=== PATIENT | female | born 1965 | race Caucasian/White ===

== ENCOUNTER 2021-08-17 16:51 | Inpatient (IN) | payer MEDICAID ==
[~2021-08-17] VITALS: Ht 165.1 cm; Wt 66.2 kg
--- NOTE | 2021-08-17 16:55 | NUR ---
PATIENT BIBA BY CARE [facility]B TO BED 6.
[2021-08-17 16:58] VITALS: BP 121/61
--- NOTE | 2021-08-17 16:58 | NUR ---
Dr. Collier is evaluating patient at bedside
--- NOTE | 2021-08-17 17:00 | NUR ---
56 y/o F BIBA c/o ALOC. Per EMS, patient was at work and patient's boss contacted 911 after finding her outside of work with a half empty bottle of [place] alcohol. Patient presents able to follow verbal commands, repetitive responses and states "I'm sorry, I don't know" upon assessment questions. Unable to perform complete assessment due to patient's presentation. AccuChek 88. Lung sounds CTA; no abdominal tenderness upon palpation. Patient without facial droop, arm drift, and has equal floor tiling professional/pushes/pulls to lower extremities. SpO2 88% on room air, ERMD made aware and placed onto 3L by NC. RR 17 even/unlabored in no acute respiratory distress. Bed locked in lowest position, side rails x 2 for patient safety. Patient within view of nurses station. PMH/Sx/Meds/Allergies: unable to obtain
--- NOTE | 2021-08-17 17:05 | NUR ---
Patient desaturated to 88% on room air; Dr. Collier made aware and 3L by [place] provided; SpO2 95%.
--- NOTE | 2021-08-17 17:06 | NUR ---
DR. BLANC AT BEDSIDE EVALUATING PATIENT.
[2021-08-17] MEDS ORDERED: NACL 0.9% 1,000 ML IV ONE ×2 (17:15→23:25)
--- NOTE | 2021-08-17 17:25 | NUR ---
OBTAINED CT CONSENT, PLACED IN PT CHART.
--- NOTE | 2021-08-17 17:38 | NUR ---
Blood sample and cultures handed to CPT Lily at ER bedside
--- NOTE | 2021-08-17 17:49 | NUR ---
locate technician stopped by states will come back for transport pending lab results
--- NOTE | 2021-08-17 18:00 | NUR ---
Patient ambulated to restroom with steady/even gait
[2021-08-17 18:26] LABS: BASOPHILS % (AUTO) 0.3 % (0.0-2.0); EOSINOPHILS # (AUTO) 0.1 K/uL (0-0.4); EOSINOPHILS % (AUTO) 0.9 % (0.0-4.0); HEMATOCRIT 41.7 % (36-48); HEMOGLOBIN 13.7 g/dL (12.0-16.0); LYMPHOCYTES % (AUTO) 38.6 % (20.5-51.1); MEAN CORPUSCULAR HEMOGLOBIN 34 pg (27-31); MEAN CORPUSCULAR HGB CONC 33 g/dL (33-37); MEAN CORPUSCULAR VOLUME 102.1 fL (80-94); MONOCYTES # (AUTO) 0.6 K/uL (0.8-1.0); MONOCYTES % (AUTO) 4.8 % (1.7-9.3); NEUTROPHILS # (AUTO) 7.2 K/uL (1.8-7.7); NEUTROPHILS % (AUTO) 55.4 % (42.2-75.2); PLATELET COUNT (AUTO) 367 K/uL (140-450); RED BLOOD CELL COUNT(AUTO) 4.08 MIL/uL (4.20-5.40); RED CELL DISTRIBUTION WIDTH 13.6 % (11.6-13.7)
[2021-08-17 18:45] LABS: ALBUMIN 3.4 g/dL (3.4-5.0); ANION GAP 17.4 (8-16); ASPARTATE AMINOTRANSFERASE 91 U/L (15-37); CARBON DIOXIDE 21.7 mmol/L (21-32); CHLORIDE 111 mmol/L (98-107); CREATININE 0.7 mg/dL (0.6-1.3); GFR ARICAN-AMERICAN 111 mL/min (>90); GLUCOSE 90 mg/dL (74-106); POTASSIUM 3.1 mmol/L (3.5-5.1); SALICYLATE 4.4 mg/dL (2.8-20.0); SODIUM SERUM 147 mmol/L (136-145); TOTAL BILIRUBIN 0.1 mg/dL (0.0-1.0); UREA NITROGEN, BLOOD 6 mg/dL (7-18)
--- NOTE | 2021-08-17 18:49 | NUR ---
LAB CONTACTED REGARDING PENDING CHEMISTRY SINCE 1704. CPT JR STATES SHE WILL CHECK AND RECONTACT
--- NOTE | 2021-08-17 18:55 | NUR ---
CPT JR called states Chemistry came back. CT notified pt is ready
[2021-08-17 18:58] LABS: ACETAMINOPHEN < 0.5 ug/ml (10-30)
--- NOTE | 2021-08-17 19:22 | NUR ---
Report and transfer of care endorsed to RENEE Gifford.
--- NOTE | 2021-08-17 19:35 | NUR ---
pt was trying to leave hospital. when asked who she was and where she answered incorrectly- stated [facility]. pt became combative. security called. pt placed back in bed.
[2021-08-17] MEDS ORDERED: ZIPRASIDONE MESYLATE 20 MG/ML VIAL IM ONE ×2 (19:37→19:40)
[2021-08-17] MEDS ORDERED: cefTRIAXone 2,000 MG in DEXTROSE 5% 100 ML IV ONE (19:50)
[2021-08-17] MEDS ORDERED: cefTRIAXone 2,000 MG VIAL ONE (20:44)
--- NOTE | 2021-08-17 20:57 | NUR ---
pt is resting. equal rise and fall of chest wall. opens eyes to touch. all needs met. side rails x2, bed locked in lowest position.
[2021-08-17] MEDS ORDERED: MIDAZOLAM 2 MG/2 ML VIAL ONE ×2 (21:30)
[2021-08-17] MEDS ORDERED: MIDAZOLAM 2 MG/2 ML VIAL IVP ONE (21:30)
--- NOTE | 2021-08-17 21:50 | NUR ---
csf taken to lab.
--- NOTE | 2021-08-17 22:16 | NUR ---
pt is resting. equal rise and fall of chest wall. opens eyes to touch. all needs met. side rails x2, bed locked in lowest position.
[2021-08-17] MEDS ORDERED: NACL 0.9% 1,000 ML IV SCH ×2 (23:25→23:35)
[2021-08-17] MEDS ORDERED: DEXT 5% / NACL 0.9% 500 ML IV ONE (23:25)
[2021-08-17] MEDS ORDERED: guaiFENesin DM 200/20 MG-10 ML 10 ML UDC PO PRN (23:35)
[2021-08-17] MEDS ORDERED: HYDROcodone/APAP 7.5/325 MG 1 TAB PO PRN (23:35)
[2021-08-17] MEDS ORDERED: POTASSIUM CHLORIDE 10 MEQ TABER PO PRN (23:35)
[2021-08-17] MEDS ORDERED: ONDANSETRON 4 MG/2 ML VIAL IM/IVP PRN (23:35)
[2021-08-17] MEDS ORDERED: ZOLPIDEM 5 MG TAB PO PRN (23:35)
[2021-08-17] MEDS ORDERED: DOCUSATE SODIUM 100 MG GELCAP PO PRN (23:35)
[2021-08-17] MEDS ORDERED: ACETAMINOPHEN 325 MG TAB PO PRN (23:35)
--- NOTE | 2021-08-17 23:56 | NUR ---
pt is awake and alert. asked about how she got here. pt denies remembering anything. pt reoriented. vss. pt in stable condition.
[2021-08-18 00:09] LABS: CSF GLUCOSE 68 mg/dL (40-70); CSF PROTEIN 58.5 mg/dL (15-45)
--- NOTE | 2021-08-18 00:16 | NUR ---
pt stated the last thing she remembers was drinking and went into work. pt provided with phone.
--- NOTE | 2021-08-18 00:33 | NUR ---
contacted about pt wanting to leave ama. stated he does not need to be called for an ama, to let pt ama.
[2021-08-18 00:36] LABS: CHOL/HDL RATIO 4.3 (1-4.5); FREE T4 (FREE THYROXINE) 0.92 ng/dL (0.76-1.46); MAGNESIUM 2.1 mg/dL (1.8-2.4); PHOSPHORUS 3.6 mg/dL (2.5-4.9); THYROID STIMULATING HORMONE 0.6 uIU/mL (0.34-3.74)
[2021-08-18 00:45] VITALS: BP 105/50
--- NOTE | 2021-08-18 00:45 | NUR ---
Patient does not wish to proceed with medical care recommended by . Patient given information related to possible complications, up to and including , which could occur as a result of leaving hospital at this time. Patient verbalizes understanding of risks involved leaving against medical advice. Patient has signed AMA form.
[2021-08-18 03:13] LABS: PROTHROMBIN TIME 10.1 secs (10.8-13.4)
[2021-08-18] MEDS ORDERED: PANTOPRAZOLE 40 MG TABEC PO SCH (09:00)
[2021-08-19 06:06] LABS: T4 (THYROXINE) 7.8 ug/dL (4.5-12.0)
== END 2021-08-18 00:45 | disposition left against medical advice (07) | DRG 52 ==
LOC: MED 16:51 → MTU 23:27
PROVIDERS: ADMIT Family Medicine; ATTEND Family Medicine
PROC: 009U3ZZ Drainage of Spinal Canal, Percutaneous Approach (ICD-10-PCS; principal; 2021-08-17)
DX: G93.49 Other encephalopathy (principal); F10.99 Alcohol use, unspecified with unspecified alcohol-induced disorder; D72.829 Elevated white blood cell count, unspecified; Z53.29 Procedure and treatment not carried out because of patient's decision for other reasons
CPT/HCPCS: 36415; 62270; 70450; 80053; 82140; 82150; 82948; 83036; 83690; 83735; 83880; 84100; 84157; 84436; 84439; 84443; 84479; 84484; 85025; 85610; 85651; 85730; 86140; 87040; 87070; 93005; 96365; 96372; 99291; G0480; G0482; J0696; J2250; J3486

== ENCOUNTER 2021-11-07 19:10 | Emergency (ER) | payer MEDICAID ==
--- NOTE | 2021-11-07 19:20 | NUR ---
PT TAKEN TO BED 6 VIA EMS [facility]
--- NOTE | 2021-11-07 19:42 | NUR ---
PT REFUSING ALL LABS
== END 2021-11-07 21:00 | disposition left against medical advice (07) ==
LOC: MED 19:10
DX: F10.129 Alcohol abuse with intoxication, unspecified (principal); Y90.9 Presence of alcohol in blood, level not specified
CPT/HCPCS: 71045; 93005; 99283; Q0092

== ENCOUNTER 2022-01-01 13:41 | Emergency (ER) | payer MEDICAID ==
[~2022-01-01] VITALS: Ht 167.6 cm; Wt 81.6 kg
[2022-01-01 13:41] VITALS: BP 109/61
--- NOTE | 2022-01-01 13:41 | NUR ---
PT TAKEN TO ROOM 11 AT THIS TIME.
--- NOTE | 2022-01-01 13:41 | NUR ---
56 Y/O FEMALE BIBA FOR REPORT OF INTOXICATION AT HER WORK DESK. SHE WAS FOUND TO HAVE XANAX NEXT TO HER AT THER DESK. AWAKE AND ORIENTED X1 GCS 11 PMHX: ALCOHOL ABUSE, ALL OTHER UNKNOWN AT THIS TIME. ALLERGIES: UNKNOWN.
[2022-01-01 14:16] LABS: BASOPHILS % (AUTO) 0.3 % (0.0-2.0); EOSINOPHILS # (AUTO) 0.2 K/uL (0-0.4); EOSINOPHILS % (AUTO) 1.3 % (0.0-4.0); HEMATOCRIT 41.1 % (36-48); HEMOGLOBIN 13.6 g/dL (12.0-16.0); LYMPHOCYTES % (AUTO) 43.3 % (20.5-51.1); MEAN CORPUSCULAR HEMOGLOBIN 32 pg (27-31); MEAN CORPUSCULAR HGB CONC 33 g/dL (33-37); MEAN CORPUSCULAR VOLUME 96.4 fL (80-94); MONOCYTES # (AUTO) 0.7 K/uL (0.8-1.0); MONOCYTES % (AUTO) 6.2 % (1.7-9.3); NEUTROPHILS # (AUTO) 5.6 K/uL (1.8-7.7); NEUTROPHILS % (AUTO) 48.9 % (42.2-75.2); PLATELET COUNT (AUTO) 275 K/uL (140-450); RED BLOOD CELL COUNT(AUTO) 4.26 MIL/uL (4.20-5.40); RED CELL DISTRIBUTION WIDTH 13.9 % (11.6-13.7); WHITE BLOOD COUNT (AUTO) 11.5 K/uL (4.8-10.8)
--- NOTE | 2022-01-01 14:50 | NUR ---
XRAY AT PATIENT BEDSIDE
[2022-01-01 15:22] LABS: ALBUMIN 3.6 g/dL (3.4-5.0); ANION GAP 15.7 (8-16); ASPARTATE AMINOTRANSFERASE 41 U/L (15-37); CARBON DIOXIDE 22.7 mmol/L (21-32); CHLORIDE 108 mmol/L (98-107); CREATININE 0.7 mg/dL (0.6-1.3); GFR ARICAN-AMERICAN 111 mL/min (>90); GLUCOSE 97 mg/dL (74-106); POTASSIUM 3.4 mmol/L (3.5-5.1); SALICYLATE 5.4 mg/dL (2.8-20.0); SODIUM SERUM 143 mmol/L (136-145); TOTAL BILIRUBIN 0.2 mg/dL (0.0-1.0); UREA NITROGEN, BLOOD 9 mg/dL (7-18)
[2022-01-01 15:25] LABS: ACETAMINOPHEN < 0.5 ug/ml (10-30)
--- NOTE | 2022-01-01 15:36 | NUR ---
Dr Dao at bedside to assess pt at this time
[2022-01-01 15:47] LABS: APPEARANCE,URINE CLEAR (CLEAR); BILIRUBIN,URINE NEGATIVE (NEGATIVE); BLOOD, URINE NEGATIVE (NEGATIVE); COLOR,URINE STRAW (YELLOW); LEUKOCYTE ESTERASE ,URINE NEGATIVE (NEGATIVE); NITRITE, URINE NEGATIVE (NEGATIVE); UGLUCOSE NEGATIVE (NEGATIVE)
[2022-01-01 15:58] VITALS: BP 143/77
[2022-01-01 16:23] LABS: BARBITURATE, URINE NEGATIVE ng/ml (NEG <=200); BENZODIAZEPINE, URINE NEGATIVE ng/mL (NEG <=200); CANNABINOID, URINE NEGATIVE ng/mL (NEG <=50); COCAINE, URINE NEGATIVE ng/mL (NEG <=300); OPIATE, URINE NEGATIVE ng/mL (NEG <=2000); PHENCYCLIDINE SCREEN,URINE NEGATIVE ng/mL (NEG <=25)
--- NOTE | 2022-01-01 17:18 | NUR ---
FAMILY ARRIVED FOR PT AND PT REFUSED TO TAKE ANY PAPERWORK AND SIGN ANY DOCUMENTS. PT AMBULATED OUT OF ER TOFAMILY CAR.
== END 2022-01-01 17:18 | disposition home or self-care (01) ==
LOC: MED 13:41
DX: F10.129 Alcohol abuse with intoxication, unspecified (principal); Y90.8 Blood alcohol level of 240 mg/100 ml or more
CPT/HCPCS: 36415; 71045; 80053; 80305; 81003; 82550; 84484; 85025; 93005; 99285; G0480; G0482